=== PATIENT | male | born 1945 | race Caucasian/White ===

== ENCOUNTER → 2018-05-14 | Outpatient (CLI) | payer MEDICARE, BC ==
[2015-05-11 12:54] VITALS: BP 107/67
[~2018-05-14] MED LIST: CARDI-OMEGA1000 MG PO; CHILDREN'S ASPI81 M1 PO; FLAX SEED OIL1000 MG PO; FOLIC ACID1 MG PO; MULTIPLE VITAMI1 CAP PO; NIACIN500 M3 PO
[2018-05-14 10:04] LABS: ALBUMIN 4.1 g/dL (3.5-5.0); CALCIUM 9.2 mg/dL (8.4-10.2); POTASSIUM 4.5 mmol/L (3.6-5.0); TOTAL BILIRUBIN 0.7 mg/dL (0.2-1.3); TOTAL PROTEIN 7.4 g/dL (6.3-8.2)
[2018-05-14 10:24] LABS: EOS # 0.2 (0.04-0.40); EOS % 3.1 % (0.0-4.0); HEMATOCRIT 48.7 % (42.0-52.0); HEMOGLOBIN 15.9 g/dL (13.5-18.0); MEAN CELL VOLUME 89 fl (78-100); MEAN CORPUSCULAR HEMOGLOBIN 29 pg (27-31); MEAN CORPUSCULAR HGB CONC 33 g/dL (33-37); MEAN PLATELET VOLUME 9.7 fl (7.4-10.4); MONO # 0.6 (0.20-0.80); NEU # 3.3 (1.40-6.50); PLATELET COUNT 244 K/mm3 (130-400); RED CELL DISTRIBUTION WIDTH 13.7 % (11.5-14.5); WHITE BLOOD COUNT 6.1 K/mm3 (4.8-10.8)
== END ==
LOC: LAB 09:23
PROVIDERS: Internal Medicine
DX: Z12.11 Encounter for screening for malignant neoplasm of colon (principal); L40.9 Psoriasis, unspecified; E78.2 Mixed hyperlipidemia; K90.9 Intestinal malabsorption, unspecified; M25.559 Pain in unspecified hip

== ENCOUNTER → 2020-02-10 | Outpatient (CLI) | payer MEDICARE, BC ==
[2015-05-11 12:54] VITALS: BP 107/67
[2020-02-10 11:04] LABS: EOS # 0.2 (0.04-0.40); EOS % 3.3 % (0.0-4.0); HEMATOCRIT 49.2 % (42.0-52.0); HEMOGLOBIN 16.3 g/dL (13.5-18.0); MEAN CELL VOLUME 88 fl (78-100); MEAN CORPUSCULAR HEMOGLOBIN 29 pg (27-31); MEAN CORPUSCULAR HGB CONC 33 g/dL (33-37); MEAN PLATELET VOLUME 9.4 fl (7.4-10.4); MONO # 0.7 (0.20-0.80); NEU # 4.3 (1.40-6.50); PLATELET COUNT 242 K/mm3 (130-400); RED BLOOD COUNT 5.59 M/mm3 (4.20-5.60); RED CELL DISTRIBUTION WIDTH 13.5 % (11.5-14.5); WHITE BLOOD COUNT 7.2 K/mm3 (4.8-10.8)
[2020-02-10 11:07] LABS: ALBUMIN 4.2 g/dL (3.4-4.8); POTASSIUM 4.6 mmol/L (3.5-5.1)
[2020-02-10 11:08] LABS: CALCIUM 9.1 mg/dL (8.3-10.5)
[2020-02-10 11:09] LABS: TOTAL PROTEIN 7.5 g/dL (6.2-8.1)
[2020-02-10 11:11] LABS: TOTAL BILIRUBIN 0.8 mg/dL (0.2-1.2)
[2020-02-10 11:16] LABS: MAGNESIUM 2.11 mg/dL (1.60-2.60)
[2020-02-10 12:11] LABS: ERYTHROCYTE SEDIMENTATION RATE 7 mm/hr (0-20)
== END ==
LOC: LAB 10:18
PROVIDERS: Internal Medicine
DX: Z12.5 Encounter for screening for malignant neoplasm of prostate (principal); H53.8 Other visual disturbances; E78.5 Hyperlipidemia, unspecified; R20.2 Paresthesia of skin; R73.9 Hyperglycemia, unspecified

== ENCOUNTER → 2020-02-15 | Outpatient (CLI) | payer MEDICARE, BC ==
[2015-05-11 12:54] VITALS: BP 107/67
== END ==
LOC: RAD 10:02
DX: I67.82 Cerebral ischemia (principal); G31.9 Degenerative disease of nervous system, unspecified
CPT/HCPCS: A9585

== ENCOUNTER → 2021-11-13 | Outpatient (CLI) | payer MEDICARE, BC ==
[2021-11-13 12:17] LABS: BASO # 0.03 K/mm3 (0.02-0.10); EOS # 0.22 K/mm3 (0.04-0.40); EOS % 3.9 % (0.0-4.0); HEMATOCRIT 48.2 % (42.0-52.0); HEMOGLOBIN 16.2 g/dL (13.5-18.0); LYMPH# 1.71 K/mm3 (1.50-4.00); MEAN CELL VOLUME 90 fl (78-100); MEAN CORPUSCULAR HEMOGLOBIN 30 pg (27-31); MEAN CORPUSCULAR HGB CONC 34 g/dL (33-37); MEAN PLATELET VOLUME 8.8 fl (7.4-10.4); MONO # 0.51 K/mm3 (0.20-0.80); NEU # 3.24 K/mm3 (1.40-6.50); PLATELET COUNT 207 K/mm3 (130-400); RED BLOOD COUNT 5.36 M/mm3 (4.20-5.60); RED CELL DISTRIBUTION WIDTH 13.1 % (11.5-14.5); WHITE BLOOD COUNT 5.7 K/mm3 (4.8-10.8)
[2021-11-13 12:22] LABS: ALBUMIN 4.2 g/dL (3.4-4.8)
[2021-11-13 12:23] LABS: CALCIUM 9.5 mg/dL (8.3-10.5)
[2021-11-13 12:25] LABS: TOTAL PROTEIN 7.5 g/dL (6.2-8.1)
[2021-11-13 12:26] LABS: TOTAL BILIRUBIN 0.6 mg/dL (0.2-1.2)
== END ==
LOC: LAB 12:00
PROVIDERS: Internal Medicine
DX: Z12.5 Encounter for screening for malignant neoplasm of prostate (principal); Z12.11 Encounter for screening for malignant neoplasm of colon; E78.5 Hyperlipidemia, unspecified; K90.9 Intestinal malabsorption, unspecified; K22.70 Barrett's esophagus without dysplasia; E78.2 Mixed hyperlipidemia